=== PATIENT | female | born 1995 | race Caucasian/White ===

== ENCOUNTER 2018-05-10 02:34 | Observation (INO) | payer BC ==
[2018-05-10] MEDS ORDERED: IV RINGERS,LACTATED 1000ML 1,000 ML IV SCH (02:45)
[2018-05-10 03:46] LABS: BILIRUBIN,URINE NEGATIVE (NEG); CLARITY,URINE CLEAR; COLOR,URINE YELLOW; NITRITE,URINE NEGATIVE (NEG); PROTEIN,URINE NEGATIVE (NEG-TRACE); UROBILINOGEN,URINE 0.2 mg/dL (0.2 mg/dL)
[2018-05-10 03:52] LABS: BARBITURATES NEG (NEG); BENZODIAZEPINES NEG (NEG); CANNABINOIDS NEG (NEG); COCAINE NEG (NEG); METHADONE NEG (NEG); OPIATES NEG (NEG); PHENCYCLIDINE NEG (NEG)
[2018-05-10 03:53] LABS: BACTERIA,URINE 0 /HPF (0-FEW); RBC,URINE 0 /HPF (0-2); SQUAMOUS EPITHELIAL CELL,UR FEW /LPF; WBC,URINE OCC /HPF (0-4)
[2018-05-10 03:55] LABS: AMPHETAMINE/METHAMPHETAMINE NEG (NEG)
--- NOTE | 2018-05-10 05:04 | RAD ---
Indication: Hyperplasia. Spotting. TECHNIQUE: Ultrasound OB more than or equal to 14 weeks. COMPARISON: None FINDINGS: The cervix measures 3.3 cm in length and is closed. Single intrauterine seen in cephalic position. The biparietal diameter measures 8.7 cm corresponding to estimated gestation age of 35 weeks 0 days. The head circumference measures 31.2 cm corresponding to estimated gestation age of 34 weeks 6 days. Placenta is anterior in position. About circumference measures 31.4 cm corresponding to gestation age of 35 weeks 3 days. Amniotic fluid index measures 13.8 cm which is within normal limits. Heart rate 139 bpm. Systolic to diastolic ratio measures 2.87. Femoral length measures 6.6 cm corresponding to estimated gestation age of 34 weeks 1 day. IMPRESSION: Single viable intrauterine corresponding to estimated gestation age of 34 weeks 6 days and due date of 06/15/2018.. Electronically signed by: Martin Barnes DO (05/10/2018 5:00 AM) [id number]
[2018-05-10 07:45] LABS: HEMATOCRIT 30.8 % (36.0-47.0); HEMOGLOBIN 10.6 g/dL (12.0-15.5); RED BLOOD COUNT 3.54 x10^6/uL (3.50-5.40); RED CELL DISTRIBUTION WIDTH 13.1 % (11.5-14.5); WHITE BLOOD COUNT 18.4 x10^3/uL (4.0-11.0)
[2018-05-10 07:52] LABS: CALCIUM 8.7 mg/dL (8.5-10.1); CREATININE 0.5 mg/dL (0.6-1.0); GFR 154.3; POTASSIUM 3.3 mmol/L (3.5-5.1)
[2018-05-10 07:57] LABS: ALBUMIN 2.8 g/dL (3.4-5.0); ALBUMIN/GLOBULIN RATIO 0.7 (1.0-1.7); TOTAL BILIRUBIN 0.2 mg/dL (0.2-1.0); TOTAL PROTEIN 7.1 g/dL (6.4-8.2); URIC ACID 4.4 mg/dL (2.6-6.0)
[2018-05-10 13:09] LABS: UR PROTEIN RD <4.0 mg/dL (Not Estab.)
== END 2018-05-10 10:08 | disposition home or self-care (01) ==
LOC: 3 SO LND 02:34
PROVIDERS: ADMIT Obstetrics & Gynecology; ATTEND Obstetrics & Gynecology
DX: O46.93 Antepartum hemorrhage, unspecified, third trimester (principal); Z3A.35 35 weeks gestation of pregnancy
CPT/HCPCS: 36415; 76805; 80053; 80307; 81001; 82570; 84156; 84550; 85027; G0378; G0379; G0479

== ENCOUNTER 2018-06-02 20:13 | Inpatient (IN) | payer BC ==
[~2018-06-02] VITALS: Ht 154.9 cm; Wt 68.0 kg
[2018-06-02] MEDS ORDERED: DINOPROSTONE 10 MG SUPP.VAG VG ONE (20:30)
[2018-06-02] MEDS ORDERED: ONDANSETRON PF 4 MG/2 ML VIAL. IV PRN (20:30)
[2018-06-02] MEDS ORDERED: TERBUTALINE 1 MG/ML VIAL. SQ PRN (20:30)
[2018-06-02] MEDS ORDERED: ACETAMINOPHEN 325 MG TABLET. PO PRN (20:30)
[2018-06-02] MEDS ORDERED: LIDOCAINE 1% PF 30 ML VIAL. INJ PRN (20:30)
[2018-06-02] MEDS ORDERED: 0.9 % SODIUM CHLORIDE 10 ML DISP.SYRIN. IV PRN (20:30)
[2018-06-02] MEDS ORDERED: OXYTOCIN 30 UNIT/500 ML PREMIX 500 ML IV PRN ×2 (20:30)
[2018-06-02] MEDS ORDERED: ZOLPIDEM 5 MG TABLET. PO PRN (20:30)
[2018-06-02] MEDS ORDERED: MAG HYDROX/ALUMINUM HYD/SIMETH 30 ML ORAL.SUSP PO PRN (20:30)
[2018-06-02] MEDS ORDERED: fentaNYL PF VIAL 100 MCG/2 ML VIAL IV PRN ×3 (20:30)
[2018-06-02 20:44] LABS: BILIRUBIN,URINE NEGATIVE (NEG); CLARITY,URINE CLEAR; COLOR,URINE YELLOW; NITRITE,URINE NEGATIVE (NEG); PROTEIN,URINE NEGATIVE (NEG-TRACE)
[2018-06-02 20:53] VITALS: BP 139/81
[2018-06-02 20:55] LABS: BACTERIA,URINE FEW /HPF (0-FEW); RBC,URINE OCC /HPF (0-2); SQUAMOUS EPITHELIAL CELL,UR MOD /LPF
[2018-06-02] MEDS: IV RINGERS,LACTATED 1000ML 1,000 ML IV PRN (20:59)
[2018-06-02 21:06] LABS: BASO # 0.1 x10^3/uL (0.0-0.2); BASO % 1 % (0-3); EOS # 0.1 x10^3/uL (0.0-0.7); EOS % 1 % (0-3); HEMATOCRIT 31.3 % (36.0-47.0); HEMOGLOBIN 10.5 g/dL (12.0-15.5); LYMPH # 1.7 x10^3/uL (1.0-4.8); LYMPH % 14 % (24-48); MEAN CORPUSCULAR HEMOGLOBIN 29 pg (25-35); MEAN CORPUSCULAR HGB CONC 34 g/dL (31-37); MEAN CORPUSCULAR VOLUME 87 fL (79-100); MONO # 0.4 x10^3/uL (0.0-1.1); MONO % 4 % (0-9); NEUT # 10.2 x10^3uL (1.8-7.7); NEUT % 82 % (31-73); PLATELET COUNT 400 x10^3/uL (140-400); RED BLOOD COUNT 3.59 x10^6/uL (3.50-5.40); RED CELL DISTRIBUTION WIDTH 14.8 % (11.5-14.5); WHITE BLOOD COUNT 12.6 x10^3/uL (4.0-11.0)
[2018-06-03] MEDS ORDERED: OXYTOCIN PREMIX 30 UNIT/500 ML BAG. IV ONE (06:00)
[2018-06-03] MEDS: IV RINGERS,LACTATED 1000ML 1,000 ML IV PRN ×3 (06:10→21:48)
[2018-06-03] MEDS ORDERED: ROPIVacaine 0.2% IN 0.9%NACL PF 40 MG/20 ML DISP.SYRIN. ONE (08:16)
[2018-06-03] MEDS ORDERED: L&D EPIDURAL SYRINGE 50 ML ONE (08:16)
[2018-06-03] MEDS ORDERED: IV RINGERS,LACTATED 1000ML 1,000 ML IV SCH (08:34)
[2018-06-03] MEDS ORDERED: ROPIVacaine 0.2% IN 0.9%NACL PF 40 MG/20 ML DISP.SYRIN. EPID PRN (08:45)
[2018-06-03] MEDS ORDERED: NALOXONE 0.4 MG/ML VIAL. IV PRN (08:45)
[2018-06-03] MEDS ORDERED: L&D EPIDURAL SYRINGE 50 ML EPID PRN (08:45)
[2018-06-03] MEDS ORDERED: fentaNYL PF VIAL 100 MCG/2 ML VIAL EPI PRN (08:45)
[2018-06-03] MEDS ORDERED: ePHEDrine PF IN SALINE 50 MG/5 ML DISP.SYRIN IV PRN (08:45)
[2018-06-03] MEDS ORDERED: ONDANSETRON PF 4 MG/2 ML VIAL. IV PRN ×2 (08:45→12:15)
--- NOTE | 2018-06-03 10:27 | PDOC1 ---
OB - History Hx of Present Care: Good Care Ultrasounds: Normal mid trimester US Obstetrical Complications: None Medical Complications: None Past Family/Social History * Past Medical, Surgical, Family and Obstetric Histories reviewed from chart. Rubella: Immune RPR/VDRL: Negative GBS Status: Negative HBsAG: Negative OB - Chief Complaint & HPI Date of Admission: Date of Admission: Jun 02, 2018 at 20:13 Chief Complaint/History : 1 Para: 0 EGA: 39 Reason for admission: induction of labor Admission Nurse Assessment Rev: Yes OB - Admission Exam Physical Exam Vitals: VS - Last 72 Hours, by Label Date Time Temp Pulse Resp B/P (MAP) Pulse Ox O2 Delivery O2 Flow Rate FiO2 06/03/18 09:06 20 06/02/18 20:53 98.1 109 18 139/81 (100) Room Air 98.1 HEENT: Normal Heart: Regular Rate Lungs: Clear Abdomen: Gravid, Non tender, Soft Extremities: Edema Reflexes: Normal Cervical Dilatation: 1cm Effacement: 50% Station: -3 Membranes: Intact Heart Rate: Normal Accelerations: Accelerations Present Decelerations: No decelerations Contractions on Admission: None Intensity: Mild Text A: 39 wksk IUP IOL secondary maternal discomforts P: Admit for IOL cervidil, then pitocin. ASHOK JUAN Jr, MD Jun 03, 2018 10:27
[2018-06-03] MEDS ORDERED: LIDOCAINE 2% PF Vial for OR 5 ML VIAL. ONE (11:10)
[2018-06-03] MEDS ORDERED: fentaNYL PF VIAL 100 MCG/2 ML VIAL ONE (11:12)
[2018-06-03] MEDS ORDERED: TERBUTALINE 1 MG/ML VIAL. SQ ONE (11:15)
[2018-06-03] MEDS ORDERED: CITRIC ACID/SODIUM CITRATE 30 ML SOLUTION. PO ONE (11:15)
[2018-06-03] MEDS ORDERED: FAMOTIDINE 20 MG/2 ML VIAL ONE (11:21)
[2018-06-03] MEDS ORDERED: METOCLOPRAMIDE HCL 10 MG/2 ML VIAL. ONE (11:21)
[2018-06-03] MEDS ORDERED: ONDANSETRON PF 4 MG/2 ML VIAL. ONE (11:21)
[2018-06-03] MEDS ORDERED: MORPHINE PF 5 MG/10 ML VIAL. ONE (11:22)
[2018-06-03] MEDS ORDERED: OXYTOCIN 10 UNIT/ML VIAL. ONE (11:22)
[2018-06-03] MEDS ORDERED: PHENYLEPHRINE in 0.9% NACL PF 1 MG/10 ML SYRINGE. IV ONE (11:37)
[2018-06-03] MEDS ORDERED: ceFAZolin 2GM PREMIX 2 GM/50 ML BAG IV ONE (12:00)
--- NOTE | 2018-06-03 12:01 | PDOC4 ---
OB Operative Note Date: Jun 03, 2018 PRE OP DIAGNOSIS: NRFHT POST OP DIAGNOSIS: NRFHT OPERATION PERFORMED: [facility] Surgeon Dr. Earl [employer] Mely Anesthesia: Regional (Epidural) Blood Loss 700 ml Specimen placenta and infant OB Findings: Position (Vertex), Sex (Male), (8/9), Weight (3240 Gram), Nuchal Cord (x1) Complications none Additional Remarks pt. ASHOK Diez Jr, MD Jun 03, 2018 12:01
[2018-06-03] MEDS ORDERED: SIMETHICONE 80 MG TAB.CHEW PO PRN (12:15)
[2018-06-03] MEDS ORDERED: MAG HYDROX/ALUMINUM HYD/SIMETH 30 ML ORAL.SUSP PO PRN (12:15)
[2018-06-03] MEDS ORDERED: OXYTOCIN 30 UNIT/500 ML PREMIX 500 ML IV PRN (12:15)
[2018-06-03] MEDS ORDERED: IBUPROFEN 400 MG TABLET. PO PRN (12:15)
[2018-06-03] MEDS ORDERED: diphenhydrAMINE ORAL ELIXIR 12.5 MG/5 ML ML PO PRN (12:15)
[2018-06-03] MEDS ORDERED: ZOLPIDEM 5 MG TABLET. PO PRN (12:15)
[2018-06-03] MEDS ORDERED: 0.9 % SODIUM CHLORIDE 10 ML DISP.SYRIN. IV PRN (12:15)
--- NOTE | 2018-06-03 13:26 | OP ---
DATE OF SURGERY: 06/03/2018 PREOPERATIVE DIAGNOSES: 1. 39 weeks intrauterine . 2. Gestational hypertension. 3. Nonreassuring heart tones/ intolerance to labor. POSTOPERATIVE DIAGNOSES: 1. 39 weeks intrauterine . 2. Gestational hypertension. 3. Nonreassuring heart tones/ intolerance to labor. PROCEDURE: Primary low transverse . SURGEON: Ashok Earl MD ROUTE DRIVER: first farzana Boone. ANESTHESIA: Epidural. ESTIMATED BLOOD LOSS: 700 mL. COMPLICATIONS: None. FINDINGS: Viable male , Apgars 8 and 9, weight 3240 grams. Three-vessel cord placenta delivered manually intact. Nuchal cord x 1. SUMMARY: A 22-year-old 1 at 39 weeks, presented for induction of labor secondary to gestational hypertension and maternal discomforts of . She was provided Cervidil overnight, the following day was provided Pitocin augmentation. The patient dilated up to 4 cm. After placing AROM and placing internal monitors, the patient began having repetitive late decelerations; therefore, she required emergency . The patient was counseled on the risks, benefits and expectations and voiced clear understanding to proceed. DESCRIPTION OF PROCEDURE: The patient was taken to surgery suite, placed in dorsal supine position. She was prepped with ChloraPrep and draped in a sterile fashion. After adequate anesthesia, a Pfannenstiel skin incision was made with scalpel down to and through the fascia. Fascia was extended laterally using curved Black scissors. The superior edge of the fascia was grasped with two Brenden clamps and dissected free of the abdominal rectus muscles using blunt dissection along with Bovie cautery. The same process took place inferiorly. The abdominal rectus muscles were dissected bluntly at the midline. Peritoneum was grasped with 2 hemostats, entered sharply with Metzenbaum scissors. This incision was extended superiorly as well as inferiorly. The Baljeet ring retractor was placed. Low transverse hysterotomy incision was made with scalpel down to the . The hysterotomy incision was extended laterally and superiorly digitally. With aid of fundal pressure, the infant's head was delivered in a smooth atraumatic manner. Nuchal cord x 1 was visualized and reduced. With additional fundal pressure, the anterior shoulder was delivered followed by posterior shoulder and rest of the male infant was delivered. was suctioned with a bulb syringe orally and nasally. Umbilical cord was clamped twice and cut and a viable male was handed to waiting nursing staff. Umbilical cord blood was then obtained as well as arterial pH. Three vessel cord placenta was delivered manually intact. The uterus was exteriorized and cleared of clot and debris with a moist lap. Hysterotomy incision was reapproximated using 1-0 Vicryl suture in a running locked fashion. Uterus palpated firm. Fallopian tubes and ovaries appeared normal bilaterally. Posterior cul-de-sac was cleared of clot and debris with a moist lap. The uterus was then returned to the abdomen. The pericolic gutters were cleared of clot and debris with a moist lap. Hysterotomy incision was reviewed and hemostatic. Interceed was placed over the hysterotomy incision in an inverted T fashion. The Baljeet ring retractor was removed. The peritoneum was reapproximated using 1-0 Vicryl suture in a running fashion. Fascia was reapproximated using 0 Vicryl suture in a running fashion. Skin was reapproximated using 4-0 Vicryl suture in a subcuticular manner. The patient tolerated the procedure well and was sent to the recovery room in stable condition. Sponge and needle count correct x 3. ASHOK EARL MD DR: JEANA/jazz JOB#: [id number] / [id number]
[2018-06-03] MEDS: KETOROLAC 30 MG/ML VIAL. IV PRN ×2 (13:41→21:48)
[2018-06-03 14:30] VITALS: BP 111/70
[2018-06-03 15:00] VITALS: BP 107/67
[2018-06-03 16:00] VITALS: BP 106/68
[2018-06-03] MEDS: oxyCODONE/APAP 5/325 1 TAB TABLET PO PRN (17:35)
[2018-06-03 18:33] VITALS: BP 122/73
[2018-06-03 21:30] VITALS: BP 120/74
[2018-06-04 01:30] VITALS: BP 108/61
[2018-06-04 06:34] LABS: BASO # 0.1 x10^3/uL (0.0-0.2); BASO % 1 % (0-3); EOS # 0.1 x10^3/uL (0.0-0.7); EOS % 1 % (0-3); HEMATOCRIT 21.7 % (36.0-47.0); HEMOGLOBIN 7.6 g/dL (12.0-15.5); LYMPH # 1.5 x10^3/uL (1.0-4.8); LYMPH % 15 % (24-48); MEAN CORPUSCULAR HEMOGLOBIN 31 pg (25-35); MEAN CORPUSCULAR HGB CONC 35 g/dL (31-37); MEAN CORPUSCULAR VOLUME 87 fL (79-100); MONO # 0.5 x10^3/uL (0.0-1.1); MONO % 5 % (0-9); NEUT # 8.3 x10^3uL (1.8-7.7); NEUT % 79 % (31-73); PLATELET COUNT 291 x10^3/uL (140-400); RED BLOOD COUNT 2.48 x10^6/uL (3.50-5.40); RED CELL DISTRIBUTION WIDTH 15.1 % (11.5-14.5); WHITE BLOOD COUNT 10.5 x10^3/uL (4.0-11.0)
[2018-06-04] MEDS: oxyCODONE/APAP 5/325 1 TAB TABLET PO PRN ×3 (06:34→15:56)
[2018-06-04] MEDS: IBUPROFEN 400 MG TABLET. PO PRN ×3 (06:34→21:23)
[2018-06-04 06:35] VITALS: BP 120/70
[2018-06-04] MEDS: FERROUS SULFATE 325 MG TABLET. PO SCH (08:00)
--- NOTE | 2018-06-04 10:03 | PDOC ---
OB Progress Note Date of Service 06/04/18 Time of Evaluation 1000 Notes Pt. feeling well. No complaints. Lab Laboratory Tests Test 06/02/18 20:35 06/02/18 20:50 06/04/18 04:30 Urine Collection Type Unknown Urine Color Yellow Urine Clarity Clear Urine pH 6.0 Urine Specific Ripley 1.015 Urine Protein Negative mg/dL (NEG-TRACE) Urine Glucose (UA) Negative mg/dL (NEG) Urine Ketones (Stick) Negative mg/dL (NEG) Urine Blood Negative (NEG) Urine Nitrite Negative (NEG) Urine Bilirubin Negative (NEG) Urine Urobilinogen Dipstick 1.0 mg/dL (0.2 mg/dL) Urine Leukocyte Esterase Moderate (NEG) Urine RBC Occ /HPF (0-2) Urine WBC 11-20 /HPF (0-4) Urine Squamous Epithelial Cells Mod /LPF Urine Bacteria Few /HPF (0-FEW) White Blood Count 12.6 x10^3/uL (4.0-11.0) 10.5 x10^3/uL (4.0-11.0) Red Blood Count 3.59 x10^6/uL (3.50-5.40) 2.48 x10^6/uL (3.50-5.40) Hemoglobin 10.5 g/dL (12.0-15.5) 7.6 g/dL (12.0-15.5) Hematocrit 31.3 % (36.0-47.0) 21.7 % (36.0-47.0) Mean Corpuscular Volume 87 fL (79-100) 87 fL (79-100) Mean Corpuscular Hemoglobin 29 pg (25-35) 31 pg (25-35) Mean Corpuscular Hemoglobin Concent 34 g/dL (31-37) 35 g/dL (31-37) Red Cell Distribution Width 14.8 % (11.5-14.5) 15.1 % (11.5-14.5) Platelet Count 400 x10^3/uL (140-400) 291 x10^3/uL (140-400) Neutrophils (%) (Auto) 82 % (31-73) 79 % (31-73) Lymphocytes (%) (Auto) 14 % (24-48) 15 % (24-48) Monocytes (%) (Auto) 4 % (0-9) 5 % (0-9) Eosinophils (%) (Auto) 1 % (0-3) 1 % (0-3) Basophils (%) (Auto) 1 % (0-3) 1 % (0-3) Neutrophils # (Auto) 10.2 x10^3uL (1.8-7.7) 8.3 x10^3uL (1.8-7.7) Lymphocytes # (Auto) 1.7 x10^3/uL (1.0-4.8) 1.5 x10^3/uL (1.0-4.8) Monocytes # (Auto) 0.4 x10^3/uL (0.0-1.1) 0.5 x10^3/uL (0.0-1.1) Eosinophils # (Auto) 0.1 x10^3/uL (0.0-0.7) 0.1 x10^3/uL (0.0-0.7) Basophils # (Auto) 0.1 x10^3/uL (0.0-0.2) 0.1 x10^3/uL (0.0-0.2) Treponema pallidum Antibody Nonreactive (Nonreactive) Laboratory Tests Test 06/04/18 04:30 White Blood Count 10.5 x10^3/uL (4.0-11.0) Red Blood Count 2.48 x10^6/uL (3.50-5.40) Hemoglobin 7.6 g/dL (12.0-15.5) Hematocrit 21.7 % (36.0-47.0) Mean Corpuscular Volume 87 fL (79-100) Mean Corpuscular Hemoglobin 31 pg (25-35) Mean Corpuscular Hemoglobin Concent 35 g/dL (31-37) Red Cell Distribution Width 15.1 % (11.5-14.5) Platelet Count 291 x10^3/uL (140-400) Neutrophils (%) (Auto) 79 % (31-73) Lymphocytes (%) (Auto) 15 % (24-48) Monocytes (%) (Auto) 5 % (0-9) Eosinophils (%) (Auto) 1 % (0-3) Basophils (%) (Auto) 1 % (0-3) Neutrophils # (Auto) 8.3 x10^3uL (1.8-7.7) Lymphocytes # (Auto) 1.5 x10^3/uL (1.0-4.8) Monocytes # (Auto) 0.5 x10^3/uL (0.0-1.1) Eosinophils # (Auto) 0.1 x10^3/uL (0.0-0.7) Basophils # (Auto) 0.1 x10^3/uL (0.0-0.2) Medications Current Medications Sodium Chloride (Normal Saline Flush) 3 ml QSHIFT PRN IV AFTER MEDS AND BLOOD DRAWS; Start 06/02/18 at 20:30 Ringer's Solution 1,000 ml @ 125 mls/hr Q8H PRN IV PER PROTOCOL Last administered on 06/03/18at 21:48; Start 06/02/18 at 20:30 Fentanyl Citrate (Fentanyl 2ml Vial) 50 mcg PRN Q20MIN PRN IV Labor pain; Start 06/02/18 at 20:30 Fentanyl Citrate (Fentanyl 2ml Vial) 75 mcg PRN Q20MIN PRN IV Labor pain; Start 06/02/18 at 20:30 Fentanyl Citrate (Fentanyl 2ml Vial) 100 mcg PRN Q20MIN PRN IV Labor pain; Start 06/02/18 at 20:30 Acetaminophen (Tylenol) 650 mg PRN Q6HRS PRN PO MILD PAIN / TEMP; Start at 20:30 Ondansetron HCl (Zofran) 4 mg PRN Q4HRS PRN IV NAUSEA/VOMITING Last administered on 06/03/18at 14:39; Start 06/02/18 at 20:30 Al Hydroxide/Mg Hydroxide (Mylanta Plus Xs) 30 ml PRN Q4HRS PRN PO HEARTBURN / GAS; Start 06/02/18 at 20:30 Zolpidem Tartrate (Ambien) 5 mg PRN QHS PRN PO INSOMNIA; Start 06/02/18 at 20: 30; Stop 06/03/18 at 20:29; Status DC Terbutaline Sulfate (Brethine) 0.25 mg 1X PRN PRN SQ SEE COMMENTS; Start 06/02 at 20:30; Stop 06/03/18 at 20:29; Status DC Lidocaine HCl (Xylocaine 1% Pf 30ml Vial) 30 ml 1X PRN PRN INJ SEE COMMENTS; Start 06/02/18 at 20:30; Stop 06/04/18 at 20:29 Oxytocin/Sodium Chloride 500 ml @ 0 mls/hr CONT PRN IV SEE I/O RECORD; Start 06/02/18 at 20:30 Oxytocin/Sodium Chloride 500 ml @ 0 mls/hr CONT PRN PRN IV Post delivery bleeding; Start 06/02/18 at 20:30 Ibuprofen (Motrin) 800 mg PRN Q6HRS PRN PO PAIN Last administered on at 06:34; Start 06/02/18 at 20:30 Dinoprostone (Cervidil) 10 mg 1X ONCE VG Last administered on 06/02/18at 21:05 ; Start 06/02/18 at 20:30; Stop 06/02/18 at 20:31; Status DC Ropivacaine/ Sodium Chloride (ROPIVacaine 0.2% - 0.9%NACL PF) 40 mg STK-MED ONCE .ROUTE ; Start 06/03/18 at 08:16; Stop 06/03/18 at 08:17; Status DC Ropivacaine/ Fentanyl/NS 50 ml @ As Directed STK-MED ONCE .ROUTE ; Start at 08:16; Stop 06/03/18 at 08:17; Status DC Ringer's Solution 1,000 ml @ 1,000 mls/hr Q1H IV Last administered on at 09:04; Start 06/03/18 at 08:34; Stop 06/03/18 at 09:33; Status DC Ephedrine Sulfate (ePHEDrine PF IN SALINE SYRINGE) 10 mg PRN Q2MIN PRN IV IF SBP<90; Start 06/03/18 at 08:45 Naloxone HCl (Narcan) 0.4 mg PRN Q1MIN PRN IV SEE COMMENTS; Start 06/03/18 at 08:45 Fentanyl Citrate (Fentanyl 2ml Vial) 100 mcg PRN 1X PRN EPI FOR ANESTHESIA; Start 06/03/18 at 08:45; Stop 06/04/18 at 08:44; Status DC Ondansetron HCl (Zofran) 4 mg PRN Q6HRS PRN IV NAUSEA/VOMITING; Start at 08:45 Ropivacaine/ Sodium Chloride (ROPIVacaine 0.2% - 0.9%NACL PF) 40 mg PRN 1X PRN EPID SEE COMMENTS Last administered on 06/03/18at 09:05; Start 06/03/18 at 08: 45; Stop 06/03/18 at 09:06; Status DC Ropivacaine/ Fentanyl/NS 50 ml @ 14 mls/hr CONT PRN EPID PAIN Last administered on 06/03/18at 09:06; Start 06/03/18 at 08:45 Influenza Virus Vaccine (Afluria Trivalent [id number] Syringe) 0.5 ml ONCE ONCE VAX IM ; Start 06/03/18 at 12:00; Stop 06/03/18 at 12:01; Status DC Cefazolin Sodium/ Dextrose 50 ml @ 100 mls/hr 1X ONCE IV ; Start 06/03/18 at 11:15; Stop 06/03/18 at 11:44; Status DC Citric Acid/ Sodium Citrate (Bicitra) 30 ml 1X ONCE PO ; Start 06/03/18 at 11: 15; Stop 06/03/18 at 11:16; Status DC Terbutaline Sulfate (Brethine) 0.25 mg 1X ONCE SQ Last administered on at 13:42; Start 06/03/18 at 11:15; Stop 06/03/18 at 11:18; Status DC Lidocaine HCl (Lidocaine Pf 2% Vial) 5 ml STK-MED ONCE .ROUTE ; Start 06/03/18 at 11:10; Stop 06/03/18 at 11:11; Status DC Fentanyl Citrate (Fentanyl 2ml Vial) 100 mcg STK-MED ONCE .ROUTE ; Start at 11:12; Stop 06/03/18 at 11:13; Status DC Ondansetron HCl (Zofran) 4 mg STK-MED ONCE .ROUTE ; Start 06/03/18 at 11:21; Stop 06/03/18 at 11:22; Status DC Metoclopramide HCl (Reglan Vial) 10 mg STK-MED ONCE .ROUTE ; Start 06/03/18 at 11:21; Stop 06/03/18 at 11:22; Status DC Famotidine (Pepcid Vial) 20 mg STK-MED ONCE .ROUTE ; Start 06/03/18 at 11:21; Stop 06/03/18 at 11:22; Status DC Morphine Sulfate (Morphine Preservative Free) 5 mg STK-MED ONCE .ROUTE ; Start 06/03/18 at 11:22; Stop 06/03/18 at 11:23; Status DC Oxytocin (Pitocin) 10 unit STK-MED ONCE .ROUTE ; Start 06/03/18 at 11:22; Stop 06/03/18 at 11:23; Status DC Phenylephrine HCl (PHENYLEPHRINE in 0.9% NACL PF) 1 mg STK-MED ONCE IV ; Start 06/03/18 at 11:37; Stop 06/03/18 at 11:38; Status DC Ephedrine Sulfate (Akovaz) 50 mg STK-MED ONCE .ROUTE ; Start 06/03/18 at 11:43 ; Stop 06/03/18 at 11:44; Status DC Sodium Chloride (Normal Saline Flush) 3 ml QSHIFT PRN IV AFTER MEDS AND BLOOD DRAWS; Start 06/03/18 at 12:15 Oxytocin/Sodium Chloride 500 ml @ 125 mls/hr CONT PRN IV EXCESSIVE POST- BLEEDING; Start 06/03/18 at 12:15; Stop 06/03/18 at 20:14; Status DC Ibuprofen (Motrin) 800 mg PRN Q4HRS PRN PO INFLAMMATION; Start 06/03/18 at 12: 15 Ondansetron HCl (Zofran) 4 mg PRN Q6HRS PRN IV NAUSEA/VOMITING 1ST CHOICE; Start 06/03/18 at 12:15 Docusate Sodium (Colace) 100 mg PRN BID PRN PO HARD STOOL; Start 06/03/18 at 12:15 Al Hydroxide/Mg Hydroxide (Mylanta Plus Xs) 30 ml PRN Q4HRS PRN PO HEARTBURN / GAS; Start 06/03/18 at 12:15 Simethicone (Gas-X) 80 mg PRN AFTMEALHC PRN PO GAS / BLOATING; Start 06/03/18 at 12:15 Diphenhydramine HCl (Benadryl Oral Elixir) 12.5 mg PRN Q6HRS PRN PO ITCHING; Start 06/03/18 at 12:15 Ferrous Sulfate (Feosol) 325 mg BIDWMEALS PO ; Start 06/03/18 at 17:00 Zolpidem Tartrate (Ambien) 5 mg PRN QHS PRN PO INSOMNIA, MAY REPEAT X1; Start 06/03/18 at 12:15 Oxycodone/ Acetaminophen (Percocet 5/325) 2 tab PRN Q4HRS PRN PO MODERATE PAIN , SEVERE PAIN Last administered on 06/04/18at 06:34; Start 06/03/18 at 12:15 Ketorolac Tromethamine (Toradol 30mg Vial) 30 mg PRN Q6HRS PRN IV PAIN MILD/ INFLAMMATION Last administered on 06/03/18at 21:48; Start 06/03/18 at 12:15; Stop 06/08/18 at 12:14 Oxytocin/Sodium Chloride (Oxytocin Premix Infusion) 30 unit STK-MED ONCE IV ; Start 06/03/18 at 06:00; Stop 06/03/18 at 13:14; Status DC Cefazolin Sodium/ Dextrose (Ancef 2gm Premix) 2 gm STK-MED ONCE IV ; Start at 12:00; Stop 06/04/18 at 08:50; Status DC Exam Abd: soft, mild tenderness, fundus firm Incision site: clean, dry and intact Assessment POD#1 s/p c/s Plan of Care: Continue current Tx, Mgmt ASHOK JUAN Jr, MD Jun 04, 2018 10:03
[2018-06-04 11:00] VITALS: BP 116/74
[2018-06-04 15:00] VITALS: BP 110/68
[2018-06-04] MEDS ORDERED: DIPHTH,PERTUSS(ACELL),TET TOX 0.5 ML DISP.SYRIN. VAX IM ONE (21:00)
[2018-06-04 23:03] VITALS: BP 118/77
[2018-06-05] MEDS: oxyCODONE/APAP 5/325 1 TAB TABLET PO PRN ×3 (01:19→16:04)
[2018-06-05] MEDS: DOCUSATE SODIUM 100 MG CAPSULE. PO PRN ×3 (06:14→19:48)
[2018-06-05] MEDS: IBUPROFEN 400 MG TABLET. PO PRN ×3 (06:14→19:48)
[2018-06-05 06:22] VITALS: BP 115/73
[2018-06-05] MEDS: FERROUS SULFATE 325 MG TABLET. PO SCH ×2 (08:00→16:04)
[2018-06-05] MEDS ORDERED: ONDANSETRON ODT 4 MG TAB.RAPDIS. PO PRN (10:15)
[2018-06-05 12:07] VITALS: BP_SYST 107; BP_SYST 118; BP_DIAS 70; BP_DIAS 75
--- NOTE | 2018-06-05 15:51 | PDOC ---
OB Progress Note Date of Service 06/05/18 Time of Evaluation 1545 Notes Pt. feeling well. She has RLQ abd pain near incision site. SHe is using heating pad and ice to help with discomfort. Lab Laboratory Tests Test 06/04/18 04:30 White Blood Count 10.5 x10^3/uL (4.0-11.0) Red Blood Count 2.48 x10^6/uL (3.50-5.40) Hemoglobin 7.6 g/dL (12.0-15.5) Hematocrit 21.7 % (36.0-47.0) Mean Corpuscular Volume 87 fL (79-100) Mean Corpuscular Hemoglobin 31 pg (25-35) Mean Corpuscular Hemoglobin Concent 35 g/dL (31-37) Red Cell Distribution Width 15.1 % (11.5-14.5) Platelet Count 291 x10^3/uL (140-400) Neutrophils (%) (Auto) 79 % (31-73) Lymphocytes (%) (Auto) 15 % (24-48) Monocytes (%) (Auto) 5 % (0-9) Eosinophils (%) (Auto) 1 % (0-3) Basophils (%) (Auto) 1 % (0-3) Neutrophils # (Auto) 8.3 x10^3uL (1.8-7.7) Lymphocytes # (Auto) 1.5 x10^3/uL (1.0-4.8) Monocytes # (Auto) 0.5 x10^3/uL (0.0-1.1) Eosinophils # (Auto) 0.1 x10^3/uL (0.0-0.7) Basophils # (Auto) 0.1 x10^3/uL (0.0-0.2) Medications Current Medications Sodium Chloride (Normal Saline Flush) 3 ml QSHIFT PRN IV AFTER MEDS AND BLOOD DRAWS; Start 06/02/18 at 20:30; Stop 06/04/18 at 14:23; Status DC Ringer's Solution 1,000 ml @ 125 mls/hr Q8H PRN IV PER PROTOCOL Last administered on 06/03/18at 21:48; Start 06/02/18 at 20:30; Stop 06/04/18 at 14 :23; Status DC Fentanyl Citrate (Fentanyl 2ml Vial) 50 mcg PRN Q20MIN PRN IV Labor pain; Start 06/02/18 at 20:30; Stop 06/04/18 at 14:24; Status DC Fentanyl Citrate (Fentanyl 2ml Vial) 75 mcg PRN Q20MIN PRN IV Labor pain; Start 06/02/18 at 20:30; Stop 06/04/18 at 14:24; Status DC Fentanyl Citrate (Fentanyl 2ml Vial) 100 mcg PRN Q20MIN PRN IV Labor pain; Start 06/02/18 at 20:30; Stop 06/04/18 at 14:24; Status DC Acetaminophen (Tylenol) 650 mg PRN Q6HRS PRN PO MILD PAIN / TEMP; Start at 20:30 Ondansetron HCl (Zofran) 4 mg PRN Q4HRS PRN IV NAUSEA/VOMITING Last administered on 06/03/18at 14:39; Start 06/02/18 at 20:30; Stop 06/04/18 at 14 :24; Status DC Al Hydroxide/Mg Hydroxide (Mylanta Plus Xs) 30 ml PRN Q4HRS PRN PO HEARTBURN / GAS; Start 06/02/18 at 20:30; Stop 06/04/18 at 14:24; Status DC Zolpidem Tartrate (Ambien) 5 mg PRN QHS PRN PO INSOMNIA; Start 06/02/18 at 20: 30; Stop 06/03/18 at 20:29; Status DC Terbutaline Sulfate (Brethine) 0.25 mg 1X PRN PRN SQ SEE COMMENTS; Start 06/02 at 20:30; Stop 06/03/18 at 20:29; Status DC Lidocaine HCl (Xylocaine 1% Pf 30ml Vial) 30 ml 1X PRN PRN INJ SEE COMMENTS; Start 06/02/18 at 20:30; Stop 06/04/18 at 14:24; Status DC Oxytocin/Sodium Chloride 500 ml @ 0 mls/hr CONT PRN IV SEE I/O RECORD; Start 06/02/18 at 20:30; Stop 06/04/18 at 14:24; Status DC Oxytocin/Sodium Chloride 500 ml @ 0 mls/hr CONT PRN PRN IV Post delivery bleeding; Start 06/02/18 at 20:30; Stop 06/04/18 at 14:24; Status DC Ibuprofen (Motrin) 800 mg PRN Q6HRS PRN PO PAIN Last administered on at 12:20; Start 06/02/18 at 20:30 Dinoprostone (Cervidil) 10 mg 1X ONCE VG Last administered on 06/02/18at 21:05 ; Start 06/02/18 at 20:30; Stop 06/02/18 at 20:31; Status DC Ropivacaine/ Sodium Chloride (ROPIVacaine 0.2% - 0.9%NACL PF) 40 mg STK-MED ONCE .ROUTE ; Start 06/03/18 at 08:16; Stop 06/03/18 at 08:17; Status DC Ropivacaine/ Fentanyl/NS 50 ml @ As Directed STK-MED ONCE .ROUTE ; Start at 08:16; Stop 06/03/18 at 08:17; Status DC Ringer's Solution 1,000 ml @ 1,000 mls/hr Q1H IV Last administered on at 09:04; Start 06/03/18 at 08:34; Stop 06/03/18 at 09:33; Status DC Ephedrine Sulfate (ePHEDrine PF IN SALINE SYRINGE) 10 mg PRN Q2MIN PRN IV IF SBP<90; Start 06/03/18 at 08:45; Stop 06/04/18 at 14:24; Status DC Naloxone HCl (Narcan) 0.4 mg PRN Q1MIN PRN IV SEE COMMENTS; Start 06/03/18 at 08:45; Stop 06/04/18 at 14:24; Status DC Fentanyl Citrate (Fentanyl 2ml Vial) 100 mcg PRN 1X PRN EPI FOR ANESTHESIA; Start 06/03/18 at 08:45; Stop 06/04/18 at 08:44; Status DC Ondansetron HCl (Zofran) 4 mg PRN Q6HRS PRN IV NAUSEA/VOMITING; Start at 08:45; Stop 06/04/18 at 14:24; Status DC Ropivacaine/ Sodium Chloride (ROPIVacaine 0.2% - 0.9%NACL PF) 40 mg PRN 1X PRN EPID SEE COMMENTS Last administered on 06/03/18at 09:05; Start 06/03/18 at 08: 45; Stop 06/03/18 at 09:06; Status DC Ropivacaine/ Fentanyl/NS 50 ml @ 14 mls/hr CONT PRN EPID PAIN Last administered on 06/03/18at 09:06; Start 06/03/18 at 08:45; Stop 06/04/18 at 14 :24; Status DC Influenza Virus Vaccine (Afluria Trivalent [id number] Syringe) 0.5 ml ONCE ONCE VAX IM Last administered on 06/04/18at 19:55; Start 06/03/18 at 12:00; Stop 06/03/18 at 12:01; Status DC Cefazolin Sodium/ Dextrose 50 ml @ 100 mls/hr 1X ONCE IV ; Start 06/03/18 at 11:15; Stop 06/03/18 at 11:44; Status DC Citric Acid/ Sodium Citrate (Bicitra) 30 ml 1X ONCE PO ; Start 06/03/18 at 11: 15; Stop 06/03/18 at 11:16; Status DC Terbutaline Sulfate (Brethine) 0.25 mg 1X ONCE SQ Last administered on at 13:42; Start 06/03/18 at 11:15; Stop 06/03/18 at 11:18; Status DC Lidocaine HCl (Lidocaine Pf 2% Vial) 5 ml STK-MED ONCE .ROUTE ; Start 06/03/18 at 11:10; Stop 06/03/18 at 11:11; Status DC Fentanyl Citrate (Fentanyl 2ml Vial) 100 mcg STK-MED ONCE .ROUTE ; Start at 11:12; Stop 06/03/18 at 11:13; Status DC Ondansetron HCl (Zofran) 4 mg STK-MED ONCE .ROUTE ; Start 06/03/18 at 11:21; Stop 06/03/18 at 11:22; Status DC Metoclopramide HCl (Reglan Vial) 10 mg STK-MED ONCE .ROUTE ; Start 06/03/18 at 11:21; Stop 06/03/18 at 11:22; Status DC Famotidine (Pepcid Vial) 20 mg STK-MED ONCE .ROUTE ; Start 06/03/18 at 11:21; Stop 06/03/18 at 11:22; Status DC Morphine Sulfate (Morphine Preservative Free) 5 mg STK-MED ONCE .ROUTE ; Start 06/03/18 at 11:22; Stop 06/03/18 at 11:23; Status DC Oxytocin (Pitocin) 10 unit STK-MED ONCE .ROUTE ; Start 06/03/18 at 11:22; Stop 06/03/18 at 11:23; Status DC Phenylephrine HCl (PHENYLEPHRINE in 0.9% NACL PF) 1 mg STK-MED ONCE IV ; Start 06/03/18 at 11:37; Stop 06/03/18 at 11:38; Status DC Ephedrine Sulfate (Akovaz) 50 mg STK-MED ONCE .ROUTE ; Start 06/03/18 at 11:43 ; Stop 06/03/18 at 11:44; Status DC Sodium Chloride (Normal Saline Flush) 3 ml QSHIFT PRN IV AFTER MEDS AND BLOOD DRAWS; Start 06/03/18 at 12:15; Stop 06/04/18 at 14:24; Status DC Oxytocin/Sodium Chloride 500 ml @ 125 mls/hr CONT PRN IV EXCESSIVE POST- BLEEDING; Start 06/03/18 at 12:15; Stop 06/03/18 at 20:14; Status DC Ibuprofen (Motrin) 800 mg PRN Q4HRS PRN PO INFLAMMATION; Start 06/03/18 at 12: 15 Ondansetron HCl (Zofran) 4 mg PRN Q6HRS PRN IV NAUSEA/VOMITING 1ST CHOICE; Start 06/03/18 at 12:15; Stop 06/04/18 at 14:24; Status DC Docusate Sodium (Colace) 100 mg PRN BID PRN PO HARD STOOL Last administered on 06/05/18at 08:00; Start 06/03/18 at 12:15 Al Hydroxide/Mg Hydroxide (Mylanta Plus Xs) 30 ml PRN Q4HRS PRN PO HEARTBURN / GAS; Start 06/03/18 at 12:15 Simethicone (Gas-X) 80 mg PRN AFTMEALHC PRN PO GAS / BLOATING; Start 06/03/18 at 12:15 Diphenhydramine HCl (Benadryl Oral Elixir) 12.5 mg PRN Q6HRS PRN PO ITCHING; Start 06/03/18 at 12:15 Ferrous Sulfate (Feosol) 325 mg BIDWMEALS PO Last administered on 06/05/18at 08 :00; Start 06/03/18 at 17:00 Zolpidem Tartrate (Ambien) 5 mg PRN QHS PRN PO INSOMNIA, MAY REPEAT X1; Start 06/03/18 at 12:15 Oxycodone/ Acetaminophen (Percocet 5/325) 2 tab PRN Q4HRS PRN PO MODERATE PAIN , SEVERE PAIN Last administered on 06/05/18at 06:14; Start 06/03/18 at 12:15 Ketorolac Tromethamine (Toradol 30mg Vial) 30 mg PRN Q6HRS PRN IV PAIN MILD/ INFLAMMATION Last administered on 06/03/18at 21:48; Start 06/03/18 at 12:15; Stop 06/04/18 at 14:24; Status DC Oxytocin/Sodium Chloride (Oxytocin Premix Infusion) 30 unit STK-MED ONCE IV ; Start 06/03/18 at 06:00; Stop 06/03/18 at 13:14; Status DC Cefazolin Sodium/ Dextrose (Ancef 2gm Premix) 2 gm STK-MED ONCE IV ; Start at 12:00; Stop 06/04/18 at 08:50; Status DC Diphtheria/ Tetanus/Acell Pertussis (Boostrix) 0.5 ml ONCE ONCE VAX IM ; Start 06/04/18 at 21:00; Stop 06/04/18 at 21:01; Status DC Ondansetron HCl (Zofran Odt) 8 mg PRN Q6HRS PRN PO NAUSEA/VOMITING; Start at 10:15 Exam Abd: soft, mild to moderate tenderness, fundus firm and non tender Incision site: clean, dry and intact. No evidence of infection or hematoma. Assessment POD#2 s/p c/s Plan of Care: Continue current Tx, Mgmt ASHOK JUAN Jr, MD Jun 05, 2018 15:51
[2018-06-05 17:13] VITALS: BP 120/77
[2018-06-05] MEDS ORDERED: BISACODYL 10 MG SUPP.RECT. PR PRN (19:15)
[2018-06-05 23:11] VITALS: BP 131/85
[2018-06-06] MEDS: IBUPROFEN 400 MG TABLET. PO PRN ×3 (02:36→18:42)
[2018-06-06] MEDS: oxyCODONE/APAP 5/325 1 TAB TABLET PO PRN ×4 (02:37→21:21)
[2018-06-06 06:36] VITALS: BP 128/80
--- NOTE | 2018-06-06 08:13 | PDOC ---
Provider Note Provider Note Doing well [facility] FU in AM SURI ALFORD MD Jun 06, 2018 08:13
[2018-06-06] MEDS: DOCUSATE SODIUM 100 MG CAPSULE. PO PRN ×2 (11:26→18:43)
[2018-06-06] MEDS: FERROUS SULFATE 325 MG TABLET. PO SCH ×2 (11:26→18:42)
[2018-06-06 12:00] VITALS: BP 120/76
[2018-06-06 23:16] VITALS: BP 120/75
[2018-06-07] MEDS: IBUPROFEN 400 MG TABLET. PO PRN (06:08)
[2018-06-07] MEDS: oxyCODONE/APAP 5/325 1 TAB TABLET PO PRN ×2 (06:08→12:40)
[2018-06-07 06:21] VITALS: BP 113/69
[2018-06-07] MEDS: FERROUS SULFATE 325 MG TABLET. PO SCH (09:17)
[2018-06-07 10:50] VITALS: BP 117/78
--- NOTE | 2018-06-07 11:28 | PDOC3 ---
OB DISCHARGE SUMMARY DATE OF ADMISSION: 06/03/18 DATE OF DISCHARGE: 06/07/18 REASON FOR ADMISSION: Induction of labor INTRAPARTUM PROCEDURES: : Low Cerv Trans DISCHARGE DIAGNOSIS: Failed/Induction, Term Delivered DISCHARGE INFORMATION: Activity (ad agueda), Diet (regular), Instructions (pelvic rest x 6 wks, no lifting > 20 lbs. x 4 wks, no driving x 2 wks) HOSPITAL COURSE Term gestation for IOL that failed due to intolerance of labor. She had unremarkable c/s that was uncomplicated. ASHOK JUAN Jr, MD Jun 07, 2018 11:28
--- NOTE | 2018-06-07 11:29 | DISCH ---
DISCHARGE INSTRUCTIONS Condition on Discharge Condition on Discharge: Stable Activity After Discharge Activity Instructions for Disc: Activity as tolerated Lifting Instructions after Dis: No heavy lifting Driving Instructions after Dis: No driving for 2 weeks Diet after Discharge Diet after Discharge: Regular Contacting the [facility] after DC Call your doctor for: Concerns you may have Follow-Up Follow up with: Dr. Earl in 2 wks. ASHOK EARL Jr, MD Jun 07, 2018 11:29
[2018-06-07] MEDS ORDERED: DOCU-109 PO (11:31)
[2018-06-07] MEDS ORDERED: OXYC1TAB7 PO (11:31)
[2018-06-07] MEDS ORDERED: IBUP-1027 PO (11:31)
--- NOTE | 2018-06-08 15:07 | PATHOLOGY ---
[facility] Accession Number: [id number] . 01 Material submitted: . PLACENTA AND CORD . 01 Clinical history: . distress . 02 Diagnosis: 571 gram early term placenta of an estimated 38 weeks gestation with attached membranes and attached and detached segments of umbilical cord: - Focal early mild acute funisitis. - Few subamnionitic pigmentated macrophages and focal reactive changes of amniotic epithelium. - Small focus of villitis of unknown etiology. (JPM:dianna; 06/08/2018) QMS/06/08/2018 . 02 Comment: There are no infarcts. . 02 Electronically signed: . Jeffery Nguyen MD, Pathologist NPI- [id number] . 01 Gross description: . Received in formalin labeled "Bren Martinez, placenta" is a alvarado placenta with attached membranes and umbilical cord. The placental disc measures 22.0 x 15.2 x 3.3 cm. The membranes are transparent and thin with the site of membrane rupture unable to be determined. The membranes have marginal insertion. The umbilical cord measures 19.5 cm in length, 1.0 cm in diameter, contains three vessels and inserts centrally, 4.6 cm from the closest placental margin. There are no true knots in the umbilical cord. The trimmed placental weight is 571 grams. The surface is blue-fleming with minimal subchorionic fibrin. Amnion nodosum is not present. Cysts are not present. The maternal surface has intact cotyledons and no basal hemorrhage. Sectioning through the placental disc reveals no calcification or infarcts. . Present with a separate container labeled "Bren Martinez, cord" is a segment of umbilical cord measuring 20.5 x 1.3 cm. Upon sectioning, the umbilical cord has 3 vessels, and no true knots or other abnormalities. . Sections are submitted as follows: . A1 proximal and distal umbilical cord A2 membranes, rolled A3 medical customer service representative peripheral placenta A4 medical customer service representative central placenta A5 medical customer service representative sections of separate segment of umbilical cord ([facility] [place]; 06/04/2018) SYC/SYC . 02 Pathologist provided ICD-10: O43.893, Z37.0, Z3A.38 . 02 CPT . 405004 Specimen Comment: Report sent to Performed at: [address] [facility] [address] [place] [address] [address] [place], [place] [id number] MD Olivier Ordoñez MD Phone: [phone] Performed at: 02 [facility] [address] [place] [id number] MD Jeffery Nguyen MD Phone: [phone]
== END 2018-06-07 13:30 | disposition home or self-care (01) | DRG 788 ==
LOC: 3 SO LND 20:13 → 3 NORTH 06-03 14:15
PROVIDERS: ADMIT Obstetrics & Gynecology; ATTEND Obstetrics & Gynecology
PROC: 3E0P7VZ Introduction of Hormone into Female Reproductive, Via Natural or Artificial Opening (ICD-10-PCS; 2018-06-02)
PROC: 10D00Z1 Extraction of Products of Conception, Low, Open Approach (ICD-10-PCS; principal; 2018-06-03)
DX: O13.4 Gestational [pregnancy-induced] hypertension without significant proteinuria, complicating childbirth (principal); O69.81X0 Labor and delivery complicated by cord around neck, without compression, not applicable or unspecified; Z37.0 Single live birth; O76 Abnormality in fetal heart rate and rhythm complicating labor and delivery; Z3A.39 39 weeks gestation of pregnancy
CPT/HCPCS: 36415; 81001; 85025; 86592; 86850; 86900; 86901; 87086; 88307; 90471; 90715; 90756; C1781; J0690; J1885; J2001; J2270; J2370; J2405; J2590; J2765; J2795; J3010; J3105; J3490; J7120; Q2035